=== PATIENT | male | born 1945 | race Hispanic/Latino ===

== ENCOUNTER → 2019-12-13 | Day surgery (SDC) | payer OTHER ==
[2019-12-09 11:00] LABS: BASOPHILS # (AUTO) 0.1 (0.0-0.1); EOSINOPHILS # (AUTO) 0.1 (0.0-0.4); EOSINOPHILS % 1.4 % (0.0-6.0); HEMATOCRIT 48.3 % (38.2-49.6); HEMOGLOBIN 15.6 g/dL (14.0-18.0); LYMPHOCYTES # (AUTO) 2.5 (1.0-3.2); LYMPHOCYTES % 32.3 % (18.0-39.1); MEAN CORPUSCULAR HEMOGLOBIN 27.8 pg (28-32); MEAN CORPUSCULAR HGB CONC 32.3 g/dL (31-35); MEAN CORPUSCULAR VOLUME 85.9 fL (81-99); MONOCYTES # (AUTO) 0.6 (0.2-0.8); NEUTROPHILS # (AUTO) 4.4 (2.1-6.9); NEUTROPHILS % 57.2 % (38.7-80.0); PLATELET COUNT 202 x10e3/uL (140-360); RED BLOOD COUNT 5.62 x10e6/uL (4.3-5.7); RED CELL DISTRIBUTION WIDTH 13.3 % (11.7-14.4)
[~2019-12-13] MED LIST: AMLODIPINE BESY10 MG PO; ATORVASTATIN CA20 MG PO; BALANCED SALT SOLN (OPTH) 15 ML BTL IO ONE; DIOVAN80 MG PO; FENTANYL CITRATE/PF 100MCG/2 ML INJ ONE; LIDOCAINE 2%/ EPINEPHRINE 20ML MDV ONE; MIDAZOLAM HCL 2 MG/2 ML VIAL ONE; NEOMYCIN/POLYMYXIN/DEX (OPTH) 3.5 GM TUBE ONE; POVIDONE IODINE 5% (OPTH) 30 ML BTL ONE
[2019-12-13 15:20] VITALS: BP 110/68
--- NOTE | 2019-12-13 21:42 | Operative Report ---
DATE OF PROCEDURE: 12/13/2019 SURGEON: Saturnino Watkins MD PREOPERATIVE DIAGNOSIS: Large nasal pterygium, right eye. POSTOPERATIVE DIAGNOSIS: Large nasal pterygium, right eye. PROCEDURES: 1. Pterygium excision, right eye, nasal. 2. Amniotic membrane graft placement, right eye, nasal. 3. Superficial keratectomy, right eye, nasal. 4. Mitomycin-C 60 seconds. ANESTHESIA: MAC. COMPLICATIONS: None. DESCRIPTION OF PROCEDURE: The patient was taken to the operating room, where he had tetracaine drops placed in the eye. The patient was prepped and draped in usual sterile ophthalmic way. A lid speculum was placed in the right eye. A 6-0 sterile stay suture was placed temporally at the limbus. The pterygium was incised and carefully removed away from the sclera and cornea using 0.12 forceps and Tish scissors. Wet-field cautery was used to control any bleeding. A superficial keratectomy was performed using a yovanny. Once the residual debris was removed from the cornea. Mitomycin was soaked in the cottonoid, concentration was 0.025% was placed at the edge of the conj for 60 seconds. Copious amounts of BSS solution were used to irrigate this off after it was removed. The amniotic membrane measured 10 x 15 mm, it was secured using fibrin and thrombin glue. Excess glue and tissue were removed using 0.12 forceps and Tish scissors. The amniotic membrane serial number is [id number]. The patient will be seen in my office tomorrow. Saturnino Watkins MD SES/MODL /[id number]
== END | disposition home or self-care (01) ==
LOC: OR 13:18
PROVIDERS: ATTEND Ophthalmology
DX: H11.051 Peripheral pterygium, progressive, right eye (principal); I10 Essential (primary) hypertension; E78.00 Pure hypercholesterolemia, unspecified; E78.5 Hyperlipidemia, unspecified; Z01.812 Encounter for preprocedural laboratory examination; Z11.59 Encounter for screening for other viral diseases; Z79.82 Long term (current) use of aspirin
CPT/HCPCS: 36415; 85025; 87635; 88304; J2001; J2250; J3010